=== PATIENT | male | born 1940 | race Caucasian/White ===

== ENCOUNTER → 2018-12-16 | Outpatient (CLI) | payer MEDICARE, OTHER ==
[~2018-12-16] MED LIST: BYSTOLIC5 MG PO; CELEBREX200 MG PO; CLONIDINE HCL0.1 MG PO; CYMBALTA60 MG PO; DAILY VITAMIN1 EAC3 PO; DIOVAN HCT 3201 EACH PO; GABAPENTIN800 MG PO; HYDRALAZINE HCL25 MG PO; HYDROCODON-ACE1 EAC9 PO; LABETALOL HCL200 MG PO; NIFEDIPINE ER30 M1 PO; NISOLDIPINE34 MG PO; PRILOSEC20 MG PO; PROBIOTIC & AC1 EACH PO; TAMSULOSIN HCL0.4 MG PO; TEKTURNA150 MG PO; TRIAMTERENE-HCTZ1 EA PO; ULTRAM 50MG50 MG PO; VITAMIN A10000 UNIT PO
--- NOTE | 2018-12-16 15:54 | Diagnostic Imaging Report ---
EXAM: CHEST 2 VIEWS, PA and lateral DATE: 12/16/2018 Time stamp on exam: 2:24 PM INDICATION: Cough COMPARISON: None FINDINGS: LINES/TUBES: None LUNGS: No consolidations or edema. PLEURA: No effusions or pneumothorax. HEART AND MEDIASTINUM: Normal size and contour. BONES AND SOFT TISSUES: No acute findings. 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 IMPRESSION: No acute thoracic abnormality. Signed by: Dr. Elgin Jarquin DO on 12/16/2018 3:51 PM
== END ==
LOC: RAD 14:15
PROVIDERS: ATTEND Family Medicine
DX: J40 Bronchitis, not specified as acute or chronic (principal)
CPT/HCPCS: 71046

== ENCOUNTER → 2019-02-28 | Outpatient (CLI) | payer MEDICARE, OTHER ==
--- NOTE | 2019-02-28 10:31 | Diagnostic Imaging Report ---
EXAMINATION: CHEST 2 VIEWS INDICATION: Bronchitis. COMPARISON: Chest radiograph 12/16/2018. FINDINGS: TUBES and LINES: None. LUNGS: Lungs are moderately inflated. Lungs are clear. There is no evidence of pneumonia or pulmonary edema. PLEURA: No pleural effusion or pneumothorax. HEART AND MEDIASTINUM: The cardiomediastinal silhouette is unremarkable. BONES AND SOFT TISSUES: No acute osseous abnormality. Compression deformity of a lower thoracic vertebral body with vertebral augmentation changes. UPPER ABDOMEN: No free air under the diaphragm. IMPRESSION: No acute radiographic abnormality. Signed by: Dr. Manuel Lamb MD on 02/28/2019 10:28 AM
== END ==
LOC: RAD 09:47
PROVIDERS: ATTEND Family Medicine
DX: J40 Bronchitis, not specified as acute or chronic (principal)
CPT/HCPCS: 71046

== ENCOUNTER → 2019-09-26 | Outpatient (CLI) | payer MEDICARE, OTHER ==
--- NOTE | 2019-09-26 09:45 | Diagnostic Imaging Report ---
EXAMINATION: CHEST 2 VIEWS INDICATION: ^[id number] ^[id number] ^BRONCHITIS COMPARISON: None FINDINGS: PA and lateral views TUBES and LINES: None. LUNGS: Lungs are well inflated. Lungs are clear. There is no evidence of pneumonia or pulmonary edema. PLEURA: No pleural effusion or pneumothorax. HEART AND MEDIASTINUM: The cardiomediastinal silhouette is unremarkable. BONES AND SOFT TISSUES: No acute osseous lesion. Lower thoracic vertebral plasty change is stable. Soft tissues are unremarkable. UPPER ABDOMEN: No free air under the diaphragm. IMPRESSION: No acute thoracic radiographic abnormality. Signed by: Xander Joel MD on 09/26/2019 9:42 AM
== END ==
LOC: RAD 09:05
PROVIDERS: ATTEND Family Medicine
DX: J40 Bronchitis, not specified as acute or chronic (principal)
CPT/HCPCS: 71046

== ENCOUNTER → 2019-10-03 | Outpatient (CLI) | payer MEDICARE, OTHER ==
[~2019-10-03] MED LIST changes: +IOPAMIDOL 370 MG/ML 200 ML INFUS..BTL INJ ONE; +SODIUM CHLORIDE 0.9% 100 ML ONE
[2019-10-03 11:36] LABS: BLOOD UREA NITROGEN 12 mg/dL (7-26); BUN/CREATININE RATIO 12 (6-25); CREATININE, SERUM 0.98 mg/dL (0.72-1.25); EST GLOMERULAR FILTRATION RATE > 60 ML/MIN (60-)
--- NOTE | 2019-10-03 14:21 | Diagnostic Imaging Report ---
History:Abnormal ultrasound of carotid. Comparison studies:None Technique: Axial images were obtained from the thoracic inlet. 3-D reconstructions and maximum intensity projection reformats were performed. Coronal and sagittal images reconstructed from the axial data. Intravenous contrast: 100 cc of Omnipaque 300. Dose modulation, iterative reconstruction, and/or weight based adjustment of the mA/kV was utilized to reduce the radiation dose to as low as reasonably achievable. Findings: Percentage of stenosis will be based on the NASCET criteria Aortic arch and major vessels: Patent. No abnormalities. Common origin of the brachiocephalic trunk, left common carotid artery. Atherosclerotic changes of the aortic arch and branches without stenosis. Common carotid arteries: Patent. No abnormalities. Right internal carotid artery: Patent. Atherosclerotic calcified and noncalcified plaque at the bulb with less than than 10% stenosis. Nonstenotic atherosclerotic calcifications of the carotid siphon. Left internal carotid artery: Patent. Calcified and noncalcified plaque results in more than 70% stenosis at the distal carotid bulb. Nonstenotic atherosclerotic calcifications of the distal cervical segment and carotid siphons. Right vertebral artery: Patent. No abnormalities . Left vertebral artery: Patent. No abnormalities. Codominant vertebral arteries. No large vessel occlusion in [place]. Straightening of the cervical lordosis. Moderate degenerative left foraminal narrowing at C3-4 moderate degenerative right foraminal narrowing at C6-7. Disc degeneration with decreased intervertebral space at C6-7. IMPRESSION: Cervical CTA: 1. Severe stenosis at the left carotid bulb. 2. Other atherosclerotic changes without hemodynamically significant stenosis Signed by: DR Gerald Jean M.D. on 10/03/2019 2:18 PM
== END ==
LOC: CT 10:26
PROVIDERS: ATTEND Family Medicine
DX: J40 Bronchitis, not specified as acute or chronic (principal); I65.22 Occlusion and stenosis of left carotid artery
CPT/HCPCS: 36415; 70498; 82565; 84520; J7050; Q9967

== ENCOUNTER 2020-10-12 05:24 | Observation (INO) | payer MEDICARE, OTHER ==
[2020-10-08 09:17] LABS: BASOPHILS # (AUTO) 0.1 (0.0-0.1); BASOPHILS % 0.9 % (0.0-1.0); EOSINOPHILS # (AUTO) 0.4 (0.0-0.4); EOSINOPHILS % 5.4 % (0.0-6.0); HEMATOCRIT 40.4 % (38.2-49.6); HEMOGLOBIN 13.6 g/dL (14.0-18.0); LYMPHOCYTES % 24.7 % (18.0-39.1); MEAN CORPUSCULAR HEMOGLOBIN 28.8 pg (28-32); MEAN CORPUSCULAR HGB CONC 33.7 g/dL (31-35); MEAN CORPUSCULAR VOLUME 85.6 fL (81-99); MONOCYTES # (AUTO) 0.7 (0.2-0.8); MONOCYTES % 8.8 % (4.4-11.3); NEUTROPHILS # (AUTO) 4.8 (2.1-6.9); NEUTROPHILS % 59.9 % (38.7-80.0); PLATELET COUNT 195 x10e3/uL (140-360); RED BLOOD COUNT 4.72 x10e6/uL (4.3-5.7); RED CELL DISTRIBUTION WIDTH 12.7 % (11.7-14.4)
[2020-10-08 09:48] LABS: ANION GAP 11.8 mmol/L (8-16); BLOOD UREA NITROGEN 11 mg/dL (7-26); BUN/CREATININE RATIO 12 (6-25); CALCIUM 9.3 mg/dL (8.4-10.2); CARBON DIOXIDE 29 mmol/L (22-29); CHLORIDE 104 mmol/L (98-107); CREATININE, SERUM 0.94 mg/dL (0.72-1.25); EST GLOMERULAR FILTRATION RATE > 60 ML/MIN (60-); GLUCOSE 94 mg/dL (74-118); POTASSIUM 3.8 mmol/L (3.5-5.1); SODIUM 141 mmol/L (136-145)
[2020-10-12] VITALS (8 sets, daily range): BP systolic 113–140; BP diastolic 58–74
[~2020-10-12] VITALS: Ht 188 cm; Wt 90.5 kg
[~2020-10-12 05:24] MED LIST changes: +AMBIEN5 MG PO; +ASPIRIN81 MG PO; +DICLOFENAC GEL; -IOPAMIDOL 370 MG/ML 200 ML INFUS..BTL INJ ONE; +LIVALO2 MG PO; +RAMIPRIL5 MG PO; -SODIUM CHLORIDE 0.9% 100 ML ONE; +TIZANIDINE HCL4 M1 PO
[2020-10-12] MEDS ORDERED: CELECOXIB 200 MG CAP ONE (06:04)
[2020-10-12] MEDS ORDERED: CEFAZOLIN SOD 1 GM/NS 50ML 100 ML IV ONE (06:04)
[2020-10-12] MEDS ORDERED: DEXAMETHASONE SOD PHOS 10 MG/1 ML VIAL ONE (06:04)
[2020-10-12] MEDS ORDERED: GABAPENTIN 300 MG CAP ONE (06:04)
[2020-10-12] MEDS ORDERED: VANCOMYCIN HCL 1,000 MG ONE (06:08)
[2020-10-12] MEDS ORDERED: TRANEXAMIC ACID 1,000 MG/10 ML ML ONE (06:09)
[2020-10-12] MEDS ORDERED: SODIUM CHLORIDE 0.9% 500ML 500 ML ONE (06:09)
[2020-10-12] MEDS ORDERED: ROPIVACAINE 246.25 MG, EPINEPHRINE HCL 1:1000 1ML 0.5 MG, CLONIDINE HCL 0.08 MG, KETORO... INJ ONE ×5 (07:45)
[2020-10-12] MEDS ORDERED: ACETAMINOPHEN 1000 MG/100 ML 100 ML IV ONE (07:55)
[2020-10-12] MEDS ORDERED: ACETAMINOPHEN 650 MG SUPP PR PRN (08:30)
[2020-10-12] MEDS ORDERED: DIPHENHYDRAMINE HCL INJ 50 MG/ML VIAL IV PRN (08:30)
[2020-10-12] MEDS ORDERED: HYDROCODONE/APAP 5MG-325MG TAB PO PRN (08:30)
[2020-10-12] MEDS ORDERED: DOCUSATE SODIUM 100 MG CAP PO PRN (08:30)
[2020-10-12] MEDS ORDERED: ONDANSETRON HCL INJ 2MG/ML 2ML 2 MG/ML VIAL IV PRN (08:30)
[2020-10-12] MEDS ORDERED: FENTANYL CITRATE/PF 100MCG/2 ML INJ ONE (09:16)
[2020-10-12] MEDS: CELECOXIB 200 MG CAP PO SCH ×2 (11:13→16:41)
[2020-10-12] MEDS: HYDROCODONE/APAP 7.5MG-325MG 1 EA TAB PO PRN ×3 (11:13→22:06)
[2020-10-12] MEDS: SODIUM CHLORIDE 0.9% 1000ML 1,000 ML IV SCH ×2 (11:15→22:17)
[2020-10-12] MEDS ORDERED: NEOSTIGMINE 1 MG/ML 10ML VIAL ONE (12:45)
[2020-10-12] MEDS ORDERED: ROCURONIUM BROMIDE 10 MG/ML 5ML VIAL IV ONE (12:45)
[2020-10-12] MEDS ORDERED: GLYCOPYRROLATE INJ 0.2 MG/ML VIAL ONE (12:45)
[2020-10-12] MEDS ORDERED: SEVOFLURANE INHAL SOLN 250 ML PEN BTL ONE (12:45)
[2020-10-12] MEDS ORDERED: ONDANSETRON HCL INJ 2MG/ML 2ML 2 MG/ML VIAL ONE (12:45)
[2020-10-12] MEDS ORDERED: DEXAMETHASONE SOD PHOS INJ 4 MG/ML VIAL ONE (12:45)
[2020-10-12] MEDS ORDERED: PROPOFOL IV EMULSION 10 MG/ML 20 ML VIAL ONE (12:45)
[2020-10-12] MEDS ORDERED: ACETAMINOPHEN 1000 MG/100 ML IV ONE (12:45)
[2020-10-12] MEDS ORDERED: LIDOCAINE HCL 2% LOCAL INJ 5 ML SDV VIAL INJ ONE (12:45)
[2020-10-12] MEDS ORDERED: LIDOCAINE 2%/ EPINEPHRINE 20ML MDV ONE (12:53)
[2020-10-12] MEDS ORDERED: ROPIVACAINE 0.5% 5 MG/ML 30 ML SDV ONE (12:53)
[2020-10-12] MEDS: CEFAZOLIN SOD 1 GM/NS 50ML 50 ML IV SCH ×2 (13:38→21:52)
[2020-10-12] MEDS: KETOROLAC TROMETHAMINE 30 MG/ML VIAL IV PRN ×2 (13:54→20:30)
[2020-10-12] MEDS: ASPIRIN 325 MG TAB PO SCH (16:41)
[2020-10-12] MEDS ORDERED: ZOLPIDEM TARTRATE 5 MG TAB PO PRN (21:00)
[2020-10-13 00:15] VITALS: BP 142/71
[2020-10-13 04:39] VITALS: BP 171/80
[2020-10-13] MEDS: HYDROCODONE/APAP 7.5MG-325MG 1 EA TAB PO PRN ×2 (04:41→10:58)
[2020-10-13] MEDS: CEFAZOLIN SOD 1 GM/NS 50ML 50 ML IV SCH (05:06)
[2020-10-13] MEDS: SODIUM CHLORIDE 0.9% 1000ML 1,000 ML IV SCH (05:07)
[2020-10-13 05:34] LABS: HEMATOCRIT 36.2 % (38.2-49.6); HEMOGLOBIN 12.4 g/dL (14.0-18.0)
[2020-10-13] MEDS: CELECOXIB 200 MG CAP PO SCH (07:48)
[2020-10-13] MEDS: ASPIRIN 325 MG TAB PO SCH (07:48)
[2020-10-13 07:50] VITALS: BP 156/73
[2020-10-13 08:20] VITALS: BP 156/73
[2020-10-13] MEDS ORDERED: ACETAMINOPHEN 1000 MG/100 ML IV PRN (08:30)
[2020-10-13] MEDS ORDERED: OMEPRAZOLE 20 MG CAP PO SCH (09:00)
[2020-10-13] MEDS ORDERED: TAMSULOSIN HCL 0.4 MG CAP PO SCH (09:00)
[2020-10-13] MEDS ORDERED: TRIAMTERENE/HCTZ 37.5-25 MG TAB PO SCH (09:00)
[2020-10-13] MEDS ORDERED: DULOXETINE HCL 30 MG DELAYED RELEASE PO SCH (09:00)
[2020-10-13] MEDS ORDERED: LACTOBACILLUS ACIDOPHILUS CAPSULE PO SCH (09:00)
[2020-10-13] MEDS ORDERED: NIFEDIPINE CR 30 MG TAB PO SCH (09:00)
[2020-10-13 12:04] VITALS: BP 190/89
[2020-10-13] MEDS ORDERED: RAMIPRIL 5 MG CAP PO SCH (21:00)
[2020-10-13] MEDS ORDERED: TIZANIDINE HCL 4 MG TAB PO SCH (21:00)
[2020-10-13] MEDS ORDERED: ZOLPIDEM TARTRATE 5 MG TAB PO SCH (21:00)
== END 2020-10-13 14:49 | disposition home health service (06) ==
LOC: OR 05:24 → PACU V 09:06 → MED/SURG 09:51
PROVIDERS: ADMIT Specialist; ATTEND Specialist
DX: M17.0 Bilateral primary osteoarthritis of knee (principal); I10 Essential (primary) hypertension; G62.9 Polyneuropathy, unspecified; Z20.822 Contact with and (suspected) exposure to COVID-19; Z01.818 Encounter for other preprocedural examination; Z96.652 Presence of left artificial knee joint
CPT/HCPCS: 27447; 36415 ×2; 71046; 73560; 80048; 85014; 85018; 85025; 86850; 86900; 86920; 97116 ×2; 97161; 97530; C1713; C1776 ×3; G0378 ×2; J0131; J0171; J0690 ×2; J1100 ×2; J1885 ×2; J2001; J2405; J2704; J2710; J2795; J3010; J3370; J7030; J7040; U0002

== ENCOUNTER → 2020-12-17 | Outpatient (RCR) | payer MEDICARE, OTHER | LOC: PT 11-30 09:52 | PROVIDERS: ATTEND Physician Assistant | DX: Z47.1 Aftercare following joint replacement surgery (principal); Z96.651 Presence of right artificial knee joint | CPT/HCPCS: 97139 ==

== ENCOUNTER → 2020-12-22 | Day surgery (SDC) | payer MEDICARE, OTHER ==
[2020-12-17 09:18] LABS: BASOPHILS # (AUTO) 0.1 (0.0-0.1); EOSINOPHILS # (AUTO) 0.4 (0.0-0.4); HEMATOCRIT 39.8 % (38.2-49.6); HEMOGLOBIN 13.5 g/dL (14.0-18.0); LYMPHOCYTES # (AUTO) 1.9 (1.0-3.2); LYMPHOCYTES % 23.2 % (18.0-39.1); MEAN CORPUSCULAR HGB CONC 33.9 g/dL (31-35); MEAN CORPUSCULAR VOLUME 85.4 fL (81-99); MONOCYTES # (AUTO) 0.7 (0.2-0.8); MONOCYTES % 8.6 % (4.4-11.3); NEUTROPHILS # (AUTO) 5.1 (2.1-6.9); PLATELET COUNT 190 x10e3/uL (140-360); RED BLOOD COUNT 4.66 x10e6/uL (4.3-5.7); RED CELL DISTRIBUTION WIDTH 12.4 % (11.7-14.4)
[~2020-12-22] MED LIST changes: +LIDOCAINE HCL 2% LOCAL INJ 5 ML SDV VIAL INJ ONE; +PROPOFOL IV EMULSION 10 MG/ML 20 ML VIAL ONE
[2020-12-22 09:47] VITALS: BP 117/77
== END | disposition home or self-care (01) ==
LOC: OR 06:05
PROVIDERS: ATTEND Internal Medicine Gastroenterology
DX: K29.60 Other gastritis without bleeding (principal); Z86.010 Personal history of colon polyps; K58.9 Irritable bowel syndrome, unspecified; K44.9 Diaphragmatic hernia without obstruction or gangrene; K64.8 Other hemorrhoids; I10 Essential (primary) hypertension; N40.0 Benign prostatic hyperplasia without lower urinary tract symptoms; Z88.6 Allergy status to analgesic agent; Z01.812 Encounter for preprocedural laboratory examination; Z20.822 Contact with and (suspected) exposure to COVID-19; Z79.82 Long term (current) use of aspirin; Z68.26 Body mass index [BMI] 26.0-26.9, adult; Z87.891 Personal history of nicotine dependence
CPT/HCPCS: 36415; 43239; 45378; 85025; 88305; 88312; J2001; J2704; U0002

== ENCOUNTER 2021-01-12 09:00 | Outpatient (RCR) | payer MEDICARE, OTHER ==
[~2021-01-12 09:00] MED LIST changes: -LIDOCAINE HCL 2% LOCAL INJ 5 ML SDV VIAL INJ ONE; -PROPOFOL IV EMULSION 10 MG/ML 20 ML VIAL ONE
== END 2021-01-17 ==
LOC: PT 09:00
PROVIDERS: ATTEND Physician Assistant
DX: Z96.651 Presence of right artificial knee joint (principal); Z47.1 Aftercare following joint replacement surgery

== ENCOUNTER 2021-12-31 11:28 | Emergency (ER) | payer MEDICARE, OTHER ==
[~2021-12-31] VITALS: Ht 188 cm; Wt 90.3 kg
[2021-12-31] MEDS ORDERED: SODIUM CHLORIDE 0.9% 500ML 500 ML IV ONE (12:00)
[2021-12-31] MEDS: DEXAMETHASONE SOD PHOS 10 MG/1 ML VIAL IV NR ×2 (12:01→12:37)
[2021-12-31 12:16] LABS: BASOPHILS # (AUTO) 0.1 (0.0-0.1); BASOPHILS % 0.8 % (0.0-1.0); EOSINOPHILS # (AUTO) 0.2 (0.0-0.4); EOSINOPHILS % 2.7 % (0.0-6.0); HEMATOCRIT 43.6 % (38.2-49.6); HEMOGLOBIN 14.7 g/dL (14.0-18.0); LYMPHOCYTES # (AUTO) 1.9 (1.0-3.2); LYMPHOCYTES % 22.1 % (18.0-39.1); MEAN CORPUSCULAR HEMOGLOBIN 29.3 pg (28-32); MEAN CORPUSCULAR HGB CONC 33.7 g/dL (31-35); MEAN CORPUSCULAR VOLUME 86.9 fL (81-99); MONOCYTES # (AUTO) 0.7 (0.2-0.8); MONOCYTES % 8.2 % (4.4-11.3); NEUTROPHILS # (AUTO) 5.6 (2.1-6.9); PLATELET COUNT 211 x10e3/uL (140-360); RED BLOOD COUNT 5.02 x10e6/uL (4.3-5.7); RED CELL DISTRIBUTION WIDTH 12.9 % (11.7-14.4)
[2021-12-31 12:33] LABS: INR 1.01; PARTIAL THROMBOPLASTIN TIME 28.7 seconds (23.8-35.5); PROTHROMBIN TIME 14.2 seconds (11.9-14.5)
[2021-12-31 12:38] LABS: B-TYPE NATRIURETIC PEPTIDE2 89.9 pg/mL (0-100)
[2021-12-31 12:39] LABS: ALBUMIN 4.2 g/dL (3.5-5.0); ALBUMIN/GLOBULIN RATIO 1.4 (0.8-2.0); ANION GAP 13.3 mmol/L (8-16); CALCIUM 9.5 mg/dL (8.4-10.2); CREATININE, SERUM 1.38 mg/dL (0.72-1.25); MAGNESIUM 2.1 MG/DL (1.3-2.1); POTASSIUM 3.3 mmol/L (3.5-5.1)
[2021-12-31 12:45] LABS: CREATINE KINASE MB 1.9 ng/mL (0-5.0)
[2021-12-31] MEDS ORDERED: SODIUM CHLORIDE 0.9% 1000ML 1,000 ML IV STA (12:54)
[2021-12-31] MEDS ORDERED: POTASSIUM CHLORIDE 20 MEQ TAB CR PO NR (13:00)
[2021-12-31 14:45] LABS: CLARITY,URINE CLEAR (CLEAR); COLOR,URINE YELLOW (YELLOW)
[2021-12-31 14:46] LABS: KETONES,URINE NEGATIVE (NEGATIVE); LEUKOCYTE ESTERASE ,URINE TRACE (NEGATIVE); NITRITE,URINE NEGATIVE (NEGATIVE); PROTEIN,URINE DIPSTICK NEGATIVE (NEGATIVE); URINE UROBILINOGEN 1 mg/dL (0.2 - 1)
[2021-12-31 14:50] LABS: BACTERIA,URINE RARE /HPF; EPITHELIAL CELLS,URINE RARE /LPF; RBC,URINE 0-5 /HPF (0-5)
[2021-12-31] MEDS ORDERED: SODIUM CHLORIDE 0.9% 1000ML 1,000 ML IV SCH (15:30)
[2021-12-31] MEDS ORDERED: HYDROCODONE/APAP 5MG-325MG TAB PO ONE (15:30)
[2021-12-31 18:21] VITALS: BP 132/70
== END 2021-12-31 18:21 | disposition other institution (70) ==
LOC: ER 11:31
DX: R42 Dizziness and giddiness (principal); R00.1 Bradycardia, unspecified; E87.6 Hypokalemia; I10 Essential (primary) hypertension; G62.9 Polyneuropathy, unspecified; R94.31 Abnormal electrocardiogram [ECG] [EKG]; Z96.652 Presence of left artificial knee joint
CPT/HCPCS: 36415; 71045; 80053; 81001; 82550; 82553; 83605; 83735; 83880; 84484; 85025; 85610; 85730; 87040; 87086; 93005; 99284; J0696; J1100; J7030; J7040

== ENCOUNTER 2024-07-03 08:53 | Outpatient (RCR) | payer MEDICARE, OTHER | END 2024-07-19 | LOC: PT 08:53 | PROVIDERS: ATTEND Physician Assistant | DX: M75.101 Unspecified rotator cuff tear or rupture of right shoulder, not specified as traumatic (principal); M62.81 Muscle weakness (generalized); M25.511 Pain in right shoulder; M25.611 Stiffness of right shoulder, not elsewhere classified ==

== ENCOUNTER → 2025-03-12 | Outpatient (REF) | payer MEDICARE, OTHER | LOC: EDSTATUS 10:00 → RESP 10:02 | PROVIDERS: ATTEND Nurse Practitioner Family | DX: J42 Unspecified chronic bronchitis (principal); J30.2 Other seasonal allergic rhinitis | CPT/HCPCS: 94060; 94727; 94729 ==

== ENCOUNTER 2025-05-18 20:30 | Emergency (ER) | payer MEDICARE, OTHER ==
[~2025-05-18] VITALS: Ht 188 cm; Wt 86.6 kg
[2025-05-18 20:41] VITALS: PULSE 60; RESP 16; TEMP 97.7
[2025-05-18 21:59] VITALS: BP 149/66; PULSE 60; RESP 18; TEMP 97.7; O2SAT 97
== END 2025-05-18 21:26 | disposition home or self-care (01) ==
LOC: FSED 20:43
DX: Z45.2 Encounter for adjustment and management of vascular access device (principal); T82.898A Other specified complication of vascular prosthetic devices, implants and grafts, initial encounter; I10 Essential (primary) hypertension; G62.9 Polyneuropathy, unspecified; Z96.652 Presence of left artificial knee joint
CPT/HCPCS: 99283